=== PATIENT | female | born 2000 | race African-American/Black ===

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

== ENCOUNTER → 2018-07-11 | Outpatient (CLI) | payer OTHER ==
--- NOTE | 2018-07-11 14:53 | REP ---
Clinical: Pelvic pain. Ovarian cyst . Technique: Transabdominal pelvic ultrasound followed by transvaginal examination for better evaluation of the endometrium and adnexa with color Doppler evaluation of the ovaries. Findings: Bladder is unremarkable and measures 8.1 x 6.6 x 7.7 cm . Normal anteverted uterus measures 8.1 x 3.1 x 4.8 cm . The endometrial complex measures 5.6 mm thickness. No discrete uterine or endometrial abnormalities are appreciated. Bilateral ovaries are normal in appearance and vascularity without evidence for torsion. Right ovary measures 3.2 x 2.6 x 3.0 cm and includes 1.6 cm dominant follicle ; R I = 0.60 . Left ovary measures 4.7 x 1.8 x 3.1 cm ; R I = 0.64 . No pelvic fluid or adnexal mass lesion . Impression: 1. essentially normal pelvic ultrasound. Electronically Signed by Mike Chan MD 07/11/2018 02:45 P
== END ==
LOC: M RAD 13:45
PROVIDERS: ATTEND Advanced Practice Midwife
DX: Z86.018 Personal history of other benign neoplasm (principal)

== ENCOUNTER 2018-08-08 14:24 | Emergency (ER) | payer OTHER ==
[~2018-08-08] VITALS: Ht 157.5 cm; Wt 54.1 kg
[2018-08-08 14:25] VITALS: BP 129/69
[2018-08-08] MEDS ORDERED: REGL5TAB2 PO (15:20)
== END 2018-08-08 15:25 | disposition home or self-care (01) ==
LOC: M ED 14:24
DX: Z32.01 Encounter for pregnancy test, result positive (principal); F17.200 Nicotine dependence, unspecified, uncomplicated

== ENCOUNTER → 2018-08-15 | Outpatient (REF) | payer OTHER ==
[~2018-08-15] MED LIST changes: +REGL5TAB2 PO
[2018-08-15 14:16] LABS: HEMATOCRIT 35.4 % (36.0-47.0); HEMOGLOBIN 12.1 g/dl (12.0-15.5); MEAN CORPUSCULAR HEMOGLOBIN 30.6 pg (27.0-33.0); MEAN CORPUSCULAR HGB CONC 34.2 g/dl (32.0-36.5); MEAN CORPUSCULAR VOLUME 89.4 fl (80.0-96.0); PLATELET COUNT, AUTOMATED 235 10^3/uL (150-450); RED BLOOD COUNT 3.96 10^6/uL (4.00-5.40); WHITE BLOOD COUNT 8.5 10^3/uL (4.0-10.0)
[2018-08-15 15:02] LABS: HCG, SERUM QUANTITATIVE 58774 MIU/ML
[2018-08-16 09:58] LABS: RUBELLA IgG QUALITATIVE IMMUNE (IMMUNE)
[2018-08-16 10:27] LABS: HIV 1&2 SCREEN CENTAUR NEGATIVE (NEGATIVE)
== END ==
LOC: M LAB REF 12:45
PROVIDERS: ATTEND Nurse Practitioner Women's Health
DX: O36.80X0 Pregnancy with inconclusive fetal viability, not applicable or unspecified (principal); Z3A.00 Weeks of gestation of pregnancy not specified

== ENCOUNTER → 2018-08-31 | Outpatient (REF) | payer OTHER | LOC: M LAB REF 14:21 | PROVIDERS: ATTEND Nurse Practitioner Women's Health | DX: O36.80X0 Pregnancy with inconclusive fetal viability, not applicable or unspecified (principal) ==

== ENCOUNTER 2018-09-16 23:02 | Emergency (ER) | payer OTHER ==
[~2018-09-16] VITALS: Ht 157.5 cm; Wt 55.0 kg
[2018-09-16] MEDS ORDERED: MORPHINE 2 MG/ML 1ML SYRINGE (J2270) IV ONE (23:45)
[2018-09-16] MEDS ORDERED: NS 1,000 ML IV ONE (23:45)
[2018-09-17 00:36] LABS: BASO % 0.5 % (0.0-1.0); EOS # 0.1 10^3/uL (0.0-0.50); HEMATOCRIT 32.8 % (36.0-47.0); HEMOGLOBIN 11.7 g/dl (12.0-15.5); LYMPH # 1.4 10^3/uL (1.5-6.5); LYMPH % 17.4 % (24.0-44.0); MEAN CORPUSCULAR HEMOGLOBIN 31.5 pg (27.0-33.0); MEAN CORPUSCULAR HGB CONC 35.7 g/dl (32.0-36.5); MEAN CORPUSCULAR VOLUME 88.2 fl (80.0-96.0); MONO # 0.5 10^3/uL (0.0-0.8); MONO % 5.8 % (0.0-5.0); NEUTROPHILS # 6.1 10^3/uL (1.8-7.7); NEUTROPHILS % 75.1 % (36.0-66.0); PLATELET COUNT, AUTOMATED 190 10^3/uL (150-450); RED BLOOD COUNT 3.72 10^6/uL (4.00-5.40); WHITE BLOOD COUNT 8.1 10^3/uL (4.0-10.0)
[2018-09-17] MEDS ORDERED: MELA3TAB24 PO (03:49)
[2018-09-17] MEDS ORDERED: ZOLO100T PO (03:49)
--- NOTE | 2018-09-17 03:51 | REPVR ---
EXAM: US Pelvis Complete, Transabdominal EXAM DATE/TIME: 09/17/2018 1:31 AM CLINICAL HISTORY: 18 years old, female; Pelvic pain; Prior surgery; Surgery date: 3-7 days post-operative; Additional info: Post op pain/eval rpoc TECHNIQUE: Imaging protocol: Real-time transabdominal pelvic ultrasound with image documentation. Complete exam. COMPARISON: US PELVIC NON-OB COMPLETE 07/11/2018 1:59 PM FINDINGS: Uterus/cervix: The uterus measures 10.6 cm in its cephalocaudad dimension and 4.9 x 7.4 cm in its AP and lateral dimensions. The endometrium is irregular and heterogeneous and measures 2.5 cm. There is increased vascularity of the endometrium. Right adnexa: The right ovary measures 2.1 x 2.3 x 2.0 cm. Left adnexa: The left ovary measures 2.3 x 3.1 x 2.5 cm. Free fluid: None. Bladder: The urinary bladder is normal and measures 9.0 x 6.9 x 4.9 cm. IMPRESSION: 1. Thick heterogeneous endometrium with increased vascularity measuring 2.5 cm consistent with retained products of conception. 2. Otherwise negative pelvic sonogram. Electronically signed by: Mickey Ladd On 09/17/2018 03:51:36 AM
[2018-09-17] MEDS ORDERED: AMPICILLIN SOD/SULBACTAM SOD 3 GM in D5W MINI-BAG PLUS 100 ML IV ONE (04:15)
[2018-09-17 05:00] VITALS: BP 110/65
[2018-09-17] MEDS ORDERED: AUGM500T34 PO (05:13)
--- NOTE | 2018-09-19 12:41 | ED PDOC ---
Post-Departure Follow-Up dr desai faxed formal report of pelvic us for fu Ayaka Santamaria MD Sep 19, 2018 12:41
== END 2018-09-17 05:21 | disposition home or self-care (01) ==
LOC: M ED 23:02
DX: O73.1 Retained portions of placenta and membranes, without hemorrhage (principal); N92.0 Excessive and frequent menstruation with regular cycle; R11.0 Nausea; F17.200 Nicotine dependence, unspecified, uncomplicated; Z91.040 Latex allergy status
CPT/HCPCS: 76830; 76856; 85025; 96361; 96365; 96375; 99284; J2270

== ENCOUNTER 2018-09-25 04:41 | Emergency (ER) | payer OTHER ==
[~2018-09-25] VITALS: Ht 157.5 cm; Wt 55.5 kg
[~2018-09-25 04:41] MED LIST changes: +AUGM500T34 PO; +MELA3TAB24 PO; +ZOLO100T PO
[2018-09-25 05:44] LABS: BASO % 0.3 % (0.0-1.0); EOS # 0.1 10^3/uL (0.0-0.50); EOS % 0.8 % (0.0-3.0); HEMATOCRIT 32.1 % (36.0-47.0); HEMOGLOBIN 11.4 g/dl (12.0-15.5); LYMPH # 1.7 10^3/uL (1.5-6.5); LYMPH % 13.3 % (24.0-44.0); MEAN CORPUSCULAR HEMOGLOBIN 31.1 pg (27.0-33.0); MEAN CORPUSCULAR HGB CONC 35.5 g/dl (32.0-36.5); MEAN CORPUSCULAR VOLUME 87.7 fl (80.0-96.0); MONO # 0.4 10^3/uL (0.0-0.8); MONO % 3.5 % (0.0-5.0); NEUTROPHILS # 10.3 10^3/uL (1.8-7.7); NEUTROPHILS % 81.6 % (36.0-66.0); PLATELET COUNT, AUTOMATED 307 10^3/uL (150-450); RED BLOOD COUNT 3.66 10^6/uL (4.00-5.40); WHITE BLOOD COUNT 12.6 10^3/uL (4.0-10.0)
[2018-09-25] MEDS ORDERED: NS 1,000 ML IV ONE (05:45)
--- NOTE | 2018-09-25 08:52 | REPVR ---
EXAM: US Duplex Artery or Vein of the Reproductive Organs, Limited Ovaries EXAM DATE/TIME: 09/25/2018 7:43 AM CLINICAL HISTORY: 18 years old, female; Prior surgery; Surgery date: 3-7 days post-operative; Surgery type: D&C; Additional info: Bleeding/pelvic pain S/P D&C on 09/20/2018. TECHNIQUE: Imaging protocol: Real-time duplex ultrasound scan of the arterial or venous flow with meraz scale, color Doppler flow and spectral waveform analysis. Limited duplex exam focused on the ovaries. Duplex exam was performed to evaluate for ovarian torsion or mass. COMPARISON: US PELVIS ICT [employer] 09/17/2018 1:13 AM FINDINGS: Right adnexa: Normal duplex ultrasound of the right ovary. No torsion. Left adnexa: Normal duplex ultrasound of the left ovary. No torsion. IMPRESSION: Normal duplex of the ovaries. No evidence for ovarian torsion. EXAM: US Pelvis Complete, Transabdominal and US Pelvis, Transvaginal EXAM DATE/TIME: 09/25/2018 7:43 AM CLINICAL HISTORY: 18 years old, female; Prior surgery; Surgery date: 3-7 days post-operative; Surgery type: D&C; Additional info: Bleeding/pelvic pain S/P D&C on 09/20/2018. TECHNIQUE: Imaging protocol: Real-time transabdominal and transvaginal pelvic ultrasound (complete) with image documentation. Transvaginal imaging was used for better evaluation of the endometrium and adnexa. COMPARISON: US PELVIS ICT [employer] 09/17/2018 1:13 AM FINDINGS: Uterus/cervix: The anteverted uterus measures 9.1 cm x 5.2 cm x 6.5 cm. No uterine fibroid is identified. The endometrium measures 9 mm in thickness. There is a small amount of heterogeneous fluid in the endometrial canal, which is compatible with hemorrhage. No vascular mass is noted in the endometrial canal to suggest retained products of conception. There is a 2.5 cm x 2.8 cm heterogeneous avascular fluid collection in the cervix, which is also compatible with hemorrhage. Right adnexa: The right ovary is normal in appearance. No right ovarian cyst or right adnexal mass is noted. Blood flow is demonstrated to the right ovary. The right ovary measures 2.7 cm x 1.5 cm x 1.9 cm. Left adnexa: The left ovary is normal in appearance. No left ovarian cyst or left adnexal mass is noted. Blood flow is demonstrated to the left ovary. The left ovary measures 2.8 cm x 2.8 cm x 2.1 cm. Free fluid: None. Bladder: Normal. IMPRESSION: 1. Hemorrhage in the endometrial canal and cervix, but no evidence for retained products of conception. 2. Normal ovaries. Electronically signed by: Dagoberto Stoner On 09/25/2018 08:51:55 AM
[2018-09-25 09:22] LABS: BLOOD UREA NITROGEN 4 MG/DL (7-18); CARBON DIOXIDE LEVEL 24 MEQ/L (21-32); CHLORIDE LEVEL 113 MEQ/L (98-107); CREATININE FOR GFR 0.53 MG/DL (0.55-1.30); GLUCOSE, FASTING 97 MG/DL (70-100); POTASSIUM SERUM 3.6 MEQ/L (3.5-5.1); SODIUM LEVEL 143 MEQ/L (136-145)
[2018-09-25 10:24] VITALS: BP 121/79
== END 2018-09-25 10:26 | disposition home or self-care (01) ==
LOC: M ED 04:41
DX: N92.0 Excessive and frequent menstruation with regular cycle (principal); J45.909 Unspecified asthma, uncomplicated; F17.210 Nicotine dependence, cigarettes, uncomplicated

== ENCOUNTER 2019-04-13 12:29 | Emergency (ER) | payer MEDICAID, OTHER ==
[~2019-04-13] VITALS: Ht 157.5 cm; Wt 57.1 kg
[2019-04-13 12:30] VITALS: BP 142/79
[2019-04-13 13:35] LABS: BASO # 0.1 10^3/uL (0.0-0.2); BASO % 0.7 % (0.0-1.0); EOS # 0.2 10^3/uL (0.0-0.5); EOS % 2.6 % (0.0-3.0); HEMATOCRIT 35.1 % (36.0-47.0); HEMOGLOBIN 12.2 g/dl (12.0-15.5); LYMPH # 2.8 10^3/uL (1.5-5.0); LYMPH % 31.5 % (24.0-44.0); MEAN CORPUSCULAR HGB CONC 34.8 g/dl (32.0-36.5); MEAN CORPUSCULAR VOLUME 89.1 fl (80.0-96.0); MONO # 0.4 10^3/uL (0.0-0.8); MONO % 4.2 % (0.0-5.0); NEUTROPHILS # 5.4 10^3/uL (1.5-8.5); NEUTROPHILS % 60.8 % (36.0-66.0); PLATELET COUNT, AUTOMATED 246 10^3/uL (150-450); RED BLOOD COUNT 3.94 10^6/uL (4.00-5.40); WHITE BLOOD COUNT 8.8 10^3/uL (4.0-10.0)
[2019-04-13 14:24] LABS: ALBUMIN 3.8 GM/DL (3.2-5.2); ALT/SGPT 13 U/L (12-78); BILIRUBIN,DIRECT 0.1 MG/DL (0.0-0.2); BILIRUBIN,TOTAL 0.4 MG/DL (0.2-1.0); BLOOD UREA NITROGEN 5 MG/DL (7-18); CALCIUM LEVEL 8.7 MG/DL (8.5-10.1); CARBON DIOXIDE LEVEL 21 MEQ/L (21-32); CHLORIDE LEVEL 109 MEQ/L (98-107); CREATININE FOR GFR 0.52 MG/DL (0.55-1.30); GLUCOSE, FASTING 83 MG/DL (70-100); HCG, SERUM QUANTITATIVE 10060 MIU/ML; LIPASE 106 U/L (73-393); POTASSIUM SERUM 4.2 MEQ/L (3.5-5.1); SODIUM LEVEL 139 MEQ/L (136-145); TOTAL PROTEIN 7.1 GM/DL (6.4-8.2)
--- NOTE | 2019-04-13 16:40 | REP ---
Clinical: Cramping. Dating and viability. Technique: Transabdominal and transvaginal first trimester obstetrical ultrasound with color Doppler evaluation. Findings: Anteverted uterus measures 8.6 x 4.3 x 4.6 cm. A gestational sac with yolk sac is identified. Mean sac diameter of 11 mm corresponds to 5 weeks 6 days gestational age. No pole identified. Maternal ovaries are normal in appearance. Right ovary measures 2.4 x 1.0 x 1.5 cm. Left ovary measures 3.9 x 2.0 x 2.4 cm and includes 2.0 cm complex cyst likely corpus luteum. Small amount of left pelvic fluid. Impression: 1. Gestational sac with yolk sac, but no pole. Differential diagnosis includes early and blighted ovum. Correlation with serial HCG levels and follow-up examination recommended. Less likely, ectopic cannot be excluded. Electronically Signed by Mike Chan MD 04/13/2019 04:32 P
== END 2019-04-13 17:08 | disposition home or self-care (01) ==
LOC: M ED 12:29
DX: O26.891 Other specified pregnancy related conditions, first trimester (principal); Z87.59 Personal history of other complications of pregnancy, childbirth and the puerperium; Z3A.01 Less than 8 weeks gestation of pregnancy; Z91.040 Latex allergy status

== ENCOUNTER → 2019-05-08 | Outpatient (CLI) | payer MEDICAID ==
[2019-05-08 18:29] LABS: BASO % 0.5 % (0.0-1.0); EOS # 0.1 10^3/uL (0.0-0.5); EOS % 1.4 % (0.0-3.0); HEMATOCRIT 35.7 % (36.0-47.0); HEMOGLOBIN 12.5 g/dl (12.0-15.5); LYMPH # 2.4 10^3/uL (1.5-5.0); MEAN CORPUSCULAR HEMOGLOBIN 31.4 pg (27.0-33.0); MEAN CORPUSCULAR VOLUME 89.7 fl (80.0-96.0); MONO # 0.4 10^3/uL (0.0-0.8); NEUTROPHILS # 5.6 10^3/uL (1.5-8.5); NEUTROPHILS % 64.8 % (36.0-66.0); PLATELET COUNT, AUTOMATED 266 10^3/uL (150-450); RED BLOOD COUNT 3.98 10^6/uL (4.00-5.40); WHITE BLOOD COUNT 8.7 10^3/uL (4.0-10.0)
[2019-05-08 20:37] LABS: CHLAMYDIA DNA AMPLIFICATION NEGATIVE (NEGATIVE); GC DNA AMPLIFICATION NEGATIVE (NEGATIVE)
[2019-05-09 10:35] LABS: HEPATITIS C VIRUS ABY INDEX 0.2 INDEX (<0.8); HIV 1&2 SCREEN CENTAUR NEGATIVE (NEGATIVE); RUBELLA IgG QUALITATIVE IMMUNE (IMMUNE)
== END ==
LOC: M PLALAB 14:30
PROVIDERS: ATTEND Advanced Practice Midwife
DX: Z33.1 Pregnant state, incidental (principal)

== ENCOUNTER → 2019-05-22 | Outpatient (CLI) | payer MEDICAID | LOC: M PLALAB 12:14 | PROVIDERS: ATTEND Advanced Practice Midwife | DX: Z34.81 Encounter for supervision of other normal pregnancy, first trimester (principal) ==

== ENCOUNTER → 2019-07-04 | Outpatient (REF) | payer MEDICAID, OTHER | LOC: M SFHCWAGY 16:53 | PROVIDERS: ATTEND Advanced Practice Midwife | DX: R35.0 Frequency of micturition (principal) ==

== ENCOUNTER → 2019-07-20 | Outpatient (CLI) | payer MEDICAID, OTHER ==
--- NOTE | 2019-07-20 17:47 | REP ---
HISTORY: anatomy. COMPARISON: None. Multiple ultrasonographic images of the gravid uterus show a single living intrauterine gestation in the breech presentation. Doppler interrogation of the heart shows a heart rate of 158 beats per minute. The placenta is anterior and not low lying. The cervix measures 3.7 cm in length and is closed. The subjective amniotic fluid volume is within normal limits. Evaluation of the maternal adnexal spaces showed no abnormalities. BPD 4.3 cm = 19 weeks 0 days HC 16.3 cm = 19 weeks 0 days AC 14.2 cm = 19 weeks 4 days FL 3.0 cm = 19 weeks 2 days The estimated weight is 289 grams, which is at the 38th percentile for a 19 week 4 day gestational age. The anatomical structures seen as unremarkable are as follows: Thalami, cavum septum pellucidum, cerebellum, cisterna magna, cerebral ventricles, spine, kidneys, urinary bladder, upper and lower extremities, stomach, four chamber heart, right and left ventricular outflow tracts and facial features. Three vessel umbilical cord was not documented and the cord insertion site was suboptimally visualized. IMPRESSION: Single living intrauterine gestation as described above with an estimated gestational age of 19 weeks 0 days via composite criteria and an estimated date of delivery of 12/14/2019 by today's exam. No anomalies were detected, however, recommend a followup examination to better visualize the cord insertion site and document a three vessel umbilical cord.
== END ==
LOC: M WHC 14:55
PROVIDERS: ATTEND Nurse Practitioner Women's Health
DX: Z34.82 Encounter for supervision of other normal pregnancy, second trimester (principal); Z3A.17 17 weeks gestation of pregnancy

== ENCOUNTER → 2019-08-09 | Outpatient (CLI) | payer OTHER ==
--- NOTE | 2019-08-10 01:36 | REP ---
Clinical: Anatomical evaluation. Comparison: 07/20/2019 . Findings: Examination demonstrates a single live intrauterine in transverse (head to maternal left) presentation. motion is identified by technologist. Placenta is noted anterior and grade zero without evidence for placenta previa or abruption. Amniotic fluid volume is normal. Cervix measures 3.4 cm in length and appears closed. No evidence for nuchal cord. Gestational age by LMP 22 weeks 3 days with SIVAN 12/10/2019 . Gestational age by current measurements 21 weeks 5 days with SIVAN 12/15/2019 . FHR equals 167 beats per minute. Estimated weight 482 grams ( 36th percentile). Anatomical assessment demonstrates normal cord insertion/three-vessel cord. Impression: Single live intrauterine in transverse lie demonstrating appropriate interval growth. No gross abnormalities are identified.
== END ==
LOC: M WHC 13:27
PROVIDERS: ATTEND Advanced Practice Midwife
DX: Z36.2 Encounter for other antenatal screening follow-up (principal); Z3A.22 22 weeks gestation of pregnancy; O32.2XX0 Maternal care for transverse and oblique lie, not applicable or unspecified

== ENCOUNTER → 2019-09-20 | Outpatient (REF) | payer OTHER ==
[2019-09-20 17:10] LABS: HEMATOCRIT 29.3 % (36.0-47.0); HEMOGLOBIN 9.8 g/dl (12.0-15.5); MEAN CORPUSCULAR HEMOGLOBIN 30.6 pg (27.0-33.0); MEAN CORPUSCULAR HGB CONC 33.4 g/dl (32.0-36.5); MEAN CORPUSCULAR VOLUME 91.6 fl (80.0-96.0); PLATELET COUNT, AUTOMATED 275 10^3/uL (150-450); WHITE BLOOD COUNT 11.7 10^3/uL (4.0-10.0)
== END ==
LOC: M PLALAB 14:17
PROVIDERS: ATTEND Advanced Practice Midwife
DX: Z34.82 Encounter for supervision of other normal pregnancy, second trimester (principal)

== ENCOUNTER → 2019-11-20 | Outpatient (REF) | payer OTHER ==
[~2019-11-20] MED LIST changes: +FERR325T3 PO; +PRENTAB9 PO
== END ==
LOC: M SFHCWAGY 09:55
PROVIDERS: ATTEND Advanced Practice Midwife
DX: Z36.85 Encounter for antenatal screening for Streptococcus B (principal)

== ENCOUNTER 2019-11-28 23:51 | Inpatient (IN) | payer OTHER ==
[~2019-11-28] VITALS: Ht 157.5 cm; Wt 69.4 kg
[~2019-11-28 23:51] MED LIST changes: -FERR325T3 PO; -PRENTAB9 PO
[2019-11-29] MEDS ORDERED: FERR325T3 PO (00:38)
[2019-11-29 00:43] VITALS: BP 135/80
[2019-11-29] MEDS ORDERED: PRENTAB9 PO (01:34)
[2019-11-29 01:37] LABS: HEMOGLOBIN 11.9 g/dl (12.0-15.5); MEAN CORPUSCULAR HEMOGLOBIN 30.6 pg (27.0-33.0); PLATELET COUNT, AUTOMATED 226 10^3/uL (150-450); RED BLOOD COUNT 3.89 10^6/uL (4.00-5.40); WHITE BLOOD COUNT 10.1 10^3/uL (4.0-10.0)
[2019-11-29] MEDS: miSOPROStol 50 MCG 1/2 TAB (S0191) PO SCH ×3 (01:39→09:30)
[2019-11-29 01:46] LABS: ALT/SGPT 14 U/L (12-78); BILIRUBIN,TOTAL 0.4 MG/DL (0.2-1.0); CREATININE FOR GFR 0.46 MG/DL (0.55-1.30); GLOMERULAR FILTRATION RATE > 60.0 (>60); LDH LACTATE DEHYDROGENASE 207 U/L (84-246); URIC ACID 3.9 MG/DL (2.6-6.0)
[2019-11-29 02:19] LABS: TOTAL PROTEIN,RANDOM URINE 35.8 MG/DL (0.0-12.0)
[2019-11-29] MEDS ORDERED: LR 1,000 ML IV SCH (10:13)
[2019-11-29] MEDS ORDERED: OXYTOCIN DRIP 30 UNITS in IV 1 EA IV SCH ×2 (10:15→18:39)
[2019-11-29] MEDS ORDERED: OXYTOCIN 30 UNITS IN 0.9% NaCl 500ML IV BAG (J2590) As Ordered ONE (10:16)
--- NOTE | 2019-11-29 10:17 | IPNPDOC ---
Obstetrical Progress Note Date of Service Nov 29, 2019 Objective Vital Signs Date Time Temp Pulse Resp B/P (MAP) Pulse Ox O2 Delivery O2 Flow Rate FiO2 11/29/19 07:20 97.6 11/29/19 00:43 87 18 135/80 (98) Room Air Assessment Heart Rate (FHR): 130 Variability: Moderate Accelerations: Positive Decelerations: None Heart Rate Tracing: Category I Tocometer Contractions: Yes Frequency: regular Sterile Vaginal Examination Dilation: 3 cm (3-4 cm) Effacement (%): 80% Station: -1 Cervical Consistency: Soft Cervical Position: Anterior Postion/Presentation: Cephalic presentation Assessment and Plan Age: 19 Status: Reassuring Group B Streptococcus: Negative Anticipate: Vaginal Delivery Additional Comments IV Pitocin to be started per order. DAPHNE CUEVAS CNM Nov 29, 2019 10:17
[2019-11-29] MEDS ORDERED: FENTANYL 2MCG/ML ROPIVACAINE 0.2% IN 0.9% NACL 100ML IVBAG As Ordered ONE (10:41)
[2019-11-29] MEDS ORDERED: LR 500 ML IV ONE (10:45)
[2019-11-29] MEDS ORDERED: LACTATED RINGER'S 1000 ML IV PRN (11:30)
[2019-11-29] MEDS ORDERED: REFRIGERATOR IV KEYS XX PRN (11:30)
[2019-11-29] MEDS ORDERED: EPIDURAL COMMENT XX SCH (11:30)
[2019-11-29] MEDS ORDERED: ONDANSETRON 4MG/2ML VIAL IV PRN (11:30)
[2019-11-29] MEDS ORDERED: ePHEDrine SULFATE 25 MG/5 ML(5MG/ML) SYRINGE IV PRN (11:30)
[2019-11-29] MEDS ORDERED: FENTANYL/ROPIVACAINE/NACL BAG 100 ML EPIDURAL SCH (11:30)
[2019-11-29] MEDS ORDERED: diphenhydrAMINE 50MG/ML VIAL (J1200) IV PRN (11:30)
[2019-11-29] MEDS ORDERED: EPIDURAL/PCA KEYS XX PRN (11:30)
[2019-11-29] MEDS ORDERED: NALOXONE INJ 0.4MG/1ML VIAL (J2310 PER 1MG) IV PRN (11:30)
--- NOTE | 2019-11-29 15:40 | IPNPDOC ---
Obstetrical Progress Note Date of Service Nov 29, 2019 Subjective Patient is comfortable with her epidural. She denies any preeclamptic symptoms. Objective Vital Signs Date Time Temp Pulse Resp B/P (MAP) Pulse Ox O2 Delivery O2 Flow Rate FiO2 11/29/19 07:20 97.6 11/29/19 00:43 87 18 135/80 (98) Room Air 1504: BP: 110/59; pulse 95; respirations 18 Assessment Heart Rate (FHR): 120 Variability: Moderate Accelerations: Positive Decelerations: None Heart Rate Tracing: Category I Tocometer Contractions: Yes Frequency: regular, every 1-3 min. Sterile Vaginal Examination Dilation: 4 cm Effacement (%): 80% Station: -1, 0 Cervical Consistency: Soft Cervical Position: Anterior Postion/Presentation: Cephalic presentation Assessment and Plan Age: 19 : 2 Term: 0 Pre-term: 0 Abortions: 1 Livin EGA at Admission: 38.3 Status: Reassuring Group B Streptococcus: Negative Anticipate: Vaginal Delivery Additional Comments IV Pitocin is at 6 mu/min. AROM to a small amount of clear fluid. DAPHNE CUEVAS CNM Nov 29, 2019 15:40
--- NOTE | 2019-11-29 16:35 | IPNPDOC ---
Obstetrical Progress Note Date of Service Nov 29, 2019 Subjective Patient reports feeling rectal pressure. Objective BP: 136/83, pulse 88, SpO2 98% Assessment Heart Rate (FHR): 135 Variability: Moderate Accelerations: Positive Decelerations: Early Heart Rate Tracing: Category I Tocometer Contractions: Yes Frequency: regular, every 1-3 min. Sterile Vaginal Examination Dilation: 5 cm (5 to 6 cm) Effacement (%): 100% Station: +1 Assessment and Plan Age: 19 EGA at Admission: 38.3 Status: Reassuring Anticipate: Vaginal Delivery Additional Comments IV Pitocin is at 10 mu/min DAPHNE CUEVAS CNM Nov 29, 2019 16:35
[2019-11-29] MEDS ORDERED: miSOPROStol 200 MCG TAB (S0191) PR ONE (18:45)
[2019-11-29] MEDS ORDERED: RHOGAM 300 MCG (1500 IU) INJ (J2790) IM SCH (18:45)
[2019-11-29] MEDS ORDERED: IBUPROFEN 600MG TAB PO PRN (18:45)
[2019-11-29] MEDS ORDERED: ACETAMINOPHEN 500 MG TAB PO PRN (18:45)
[2019-11-29] MEDS ORDERED: MOM 30ML SUSPENSION UDC PO PRN (18:45)
[2019-11-29] MEDS ORDERED: ANUSOL HC CREAM 30GM TOP PRN (18:45)
[2019-11-29] MEDS ORDERED: IBUPROFEN 800 MG TAB PO PRN (18:45)
[2019-11-29] MEDS ORDERED: ACETAMINOPHEN TAB 650MG DOSE (2X325MG) PO PRN (18:45)
[2019-11-29] MEDS ORDERED: MEASLES,MUMPS,RUBELLA VACCINE INJ (MMR-II) (90707) SC SCH (18:45)
[2019-11-29] MEDS ORDERED: DIBUCAINE 1% OINTMENT 30GM TOP PRN (18:45)
--- NOTE | 2019-11-29 18:59 | DNPDOC ---
[facility] Delivery Note Delivery Note DATE OF DELIVERY: 11/29/19 at 1759 PREDELIVERY DIAGNOSIS: 38-3/7 weeks' gestation and labor. POST DELIVERY DIAGNOSIS: Delivered. PROCEDURE: Spontaneous vaginal delivery. ZOO VETERINARIAN: Daphne Nuñez CNM, ELA ANESTHESIA: epidural. ESTIMATED BLOOD LOSS: 500 mL. FINDINGS: 6 pounds 9 ounces; 2980 grams; male , Score 9/9, nuchal cord times 1 loose, GHTN, hemorrhage. DELIVERY SUMMARY: Patient is a 19-year-old female who is now a at 38.3 weeks gestation who presented to L&D for an induction of labor for GHTN. She received Cytotec and IV Pitocin for induction. The patient requested an epidural for pain management. She progressed to fully dilated at 1739 and pushed to a living male in the CAIN position with restitution to LOT. A nuchal cord was noted and reduced. The anterior shoulder delivered with ease and the corpus immediately followed. The baby was placed [id number] active and crying with stimulation. The cord was clamped x2 and cut by the FOB. The placenta delivered spontaneously and intact at 1803. Uterine hemostasis was achieved via rapid infusion of IV Pitocin and fundal massage. She did receive Cytotec 800 mcg rectally for extra vaginal bleeding. The vagina, cervix, and perineum were inspected and found to have a small first degree perineal laceration that was repaired with a 3.[address]-1 with a figure 8. Mom plans to formula feed and they are naming him Joeln. Both mom and baby are in stable condition. All counts of instruments and sponges are correct. DAPHNE NUÑEZ CNM Nov 29, 2019 18:59
[2019-11-29 19:10] VITALS: BP 125/91
[2019-11-29 19:25] VITALS: BP 124/82
[2019-11-29 20:00] VITALS: BP 133/86
[2019-11-30] MEDS: DOCUSATE SODIUM 100 MG CAP PO PRN ×2 (02:26→20:09)
[2019-11-30 06:00] VITALS: BP 110/77
[2019-11-30] MEDS: PRENATAL VITAMINS CHEWABLE TABLET PO SCH (08:34)
--- NOTE | 2019-11-30 09:49 | IPNPDOC ---
Text Note Date of Service The patient was seen on 11/30/19. NOTE PP #1 Feels well. Spirits good. Adequate pain management. Bottlefeeding. Voiding QS VSS, afebrile, normotensive Breasts soft Fundus firm, NT, down 1 FB Lochia rubra light without odor Perineum intact PP #1, doing well Routine care. Anticipate D/C in am VS,Fishbone, I+O VS, Fishbone, I+O Vital Signs Date Time Temp Pulse Resp B/P (MAP) Pulse Ox O2 Delivery O2 Flow Rate FiO2 11/30/19 06:00 96.5 89 18 110/77 (88) 11/29/19 00:43 Room Air I&O- Last 24 Hours up to 6 AM 11/30/19 06:00 Intake Total 2149.5 ml Output Total 1600 ml Balance 549.5 ml Selma Davis CNM Nov 30, 2019 09:49
[2019-11-30 10:00] VITALS: BP 119/75
[2019-11-30 14:00] VITALS: BP 132/63
[2019-11-30 18:18] VITALS: BP 138/92
[2019-11-30 22:00] VITALS: BP 122/80
[2019-12-01 06:00] VITALS: BP 120/76
[2019-12-01] MEDS: PRENATAL VITAMINS CHEWABLE TABLET PO SCH (08:59)
[2019-12-01 10:03] VITALS: BP 111/66
--- NOTE | 2020-01-14 14:13 | HPE ---
DATE OF ADMISSION: 11/29/2019 HISTORY OF PRESENT ILLNESS: The patient is a 19-year-old 2, para 0-0-1-0. She is 38 and 3/7 weeks gestation with an estimated date of confinement (EDC) of 12/10/2019. She presents to labor and delivery today for induction of labor due to elevated blood pressures in the third trimester. She denies headache, visual disturbances, epigastric pain, or right upper quadrant discomfort. She denies regular painful contractions, vaginal bleeding, and leakage of fluid. The fetus has been active. care was initiated at [facility] and [facility] in the first trimester. course complication by the recent diagnosis of gestational hypertension. OBSTETRIC HISTORY: Spontaneous miscarriage. OBSETRIC LABORATORY DATA: A positive. Antibody screen negative. Hepatitis C negative. Hepatitis B negative. HIV negative. Syphilis negative. Rubella immune. Gestational diabetic screening normal at 99 and GBS is negative. PAST MEDICAL HISTORY: Anemia. PAST SURGICAL HISTORY: Appendectomy. FAMILY HISTORY: Non-contributory. SOCIAL HISTORY: She is single. Father of the baby is present and at the bedside. She stopped smoking during her . She denies alcohol and drug use. No history of any sexually transmitted infections. She denies history of abuse. ALLERGIES: LATEX. CURRENT MEDICATIONS: Ferrous sulfate and vitamins. PHYSICAL EXAMINATION: VITAL SIGNS: Temperature 97.4, pulse 87, respirations 18, blood pressure 135/80. heart rate is 140 with moderate variability, positive accelerations, negative decelerations. There is no pattern of contractions. ABDOMEN: Gravid. Cephalic presentation. Estimated weight 7 pounds. PELVIC: On sterile vaginal exam 1 cm dilated, 50% effaced, -2 station, posterior soft with normal amount of show. ASSESSMENT: Intrauterine at 38 and 3/7 weeks, heart rate category 1, gestational hypertension. PLAN: Admit the patient to labor and delivery. Routine labs with the addition of preeclamptic profile and a spot urine. Saline lock at this time. Regular diet at this time. Out of bed. Plan to start misoprostol at 50 mcg p.o. every four hours for cervical ripening. Will likely start IV Pitocin for labor induction. The patient desired an epidural for her labor coping when she is in active labor. I did review the risks, benefits, and alternatives. All of her questions have been answered. She has been verbally consented for emergency surgery and blood products if they are necessary. I do anticipate cervical ripening, labor, and a vaginal delivery. MTDD
== END 2019-12-01 13:02 | disposition home or self-care (01) | DRG 560 ==
LOC: M LDI 23:51 → M OBS 11-29 20:00
PROVIDERS: ADMIT Advanced Practice Midwife; ATTEND Advanced Practice Midwife
PROC: 3E0P7GC Introduction of Other Therapeutic Substance into Female Reproductive, Via Natural or Artificial Opening (ICD-10-PCS; 2019-11-28)
PROC: 10E0XZZ Delivery of Products of Conception, External Approach (ICD-10-PCS; principal; 2019-11-29)
PROC: 10907ZC Drainage of Amniotic Fluid, Therapeutic from Products of Conception, Via Natural or Artificial Opening (ICD-10-PCS; 2019-11-29)
PROC: 0HQ9XZZ Repair Perineum Skin, External Approach (ICD-10-PCS; 2019-11-29)
DX: O13.4 Gestational [pregnancy-induced] hypertension without significant proteinuria, complicating childbirth (principal); O69.1XX0 Labor and delivery complicated by cord around neck, with compression, not applicable or unspecified; Z3A.38 38 weeks gestation of pregnancy; O70.0 First degree perineal laceration during delivery; Z37.0 Single live birth

== ENCOUNTER → 2020-02-12 | Outpatient (CLI) | payer OTHER ==
[~2020-02-12] MED LIST changes: +FERR325T3 PO; +PRENTAB9 PO
[2020-02-12 09:55] LABS: HEMATOCRIT 37.2 % (36.0-47.0); HEMOGLOBIN 12.2 g/dl (12.0-15.5); MEAN CORPUSCULAR HEMOGLOBIN 29.3 pg (27.0-33.0); MEAN CORPUSCULAR HGB CONC 32.8 g/dl (32.0-36.5); MEAN CORPUSCULAR VOLUME 89.4 fl (80.0-96.0); PLATELET COUNT, AUTOMATED 253 10^3/uL (150-450); RED BLOOD COUNT 4.16 10^6/uL (4.00-5.40); WHITE BLOOD COUNT 5.5 10^3/uL (4.0-10.0)
[2020-02-12 10:24] LABS: HEMOGLOBIN A1c 5.4 %
[2020-02-12 10:27] LABS: ERYTHROCYTE SEDIMENTATION RATE 13 mm/hr (0-20)
[2020-02-12 10:35] LABS: ALBUMIN 3.5 GM/DL (3.2-5.2); ALT/SGPT 16 U/L (12-78); BILIRUBIN,TOTAL 0.3 MG/DL (0.2-1.0); BLOOD UREA NITROGEN 5 MG/DL (7-18); CALCIUM LEVEL 8.9 MG/DL (8.5-10.1); CARBON DIOXIDE LEVEL 27 MEQ/L (21-32); CHLORIDE LEVEL 111 MEQ/L (98-107); CHOLESTEROL LEVEL 165 MG/DL (<200); CHOLESTEROL RISK RATIO 4.024 (<5); GLOMERULAR FILTRATION RATE > 60.0 (>60); GLUCOSE, FASTING 94 MG/DL (70-100); HDL CHOLESTEROL 41 MG/DL (>40); LDL CHOLESTEROL 109 MG/DL (<100); NON-HDL-C 124 MG/DL; POTASSIUM SERUM 3.8 MEQ/L (3.5-5.1); RHEUMATOID FACTOR QUANT < 10.0 IU/ML (<15.0); SODIUM LEVEL 142 MEQ/L (136-145); THYROID STIMULATING HORMONE 0.607 uIU/ML (0.358-3.740); TOTAL 25(OH) VITAMIN D 12.6 NG/ML (30.0-100.0); TRIGLYCERIDES LEVEL 76 MG/DL (<150)
== END ==
LOC: M LAB 09:15
PROVIDERS: ATTEND Family Medicine
DX: D64.9 Anemia, unspecified (principal); E03.9 Hypothyroidism, unspecified; R53.83 Other fatigue

== ENCOUNTER → 2020-05-02 | Outpatient (REF) | payer OTHER ==
[2020-05-02 15:51] LABS: CHLAMYDIA DNA AMPLIFICATION NEGATIVE (NEGATIVE); GC DNA AMPLIFICATION NEGATIVE (NEGATIVE)
== END ==
LOC: M SFHCWAGY 12:37
PROVIDERS: ATTEND Advanced Practice Midwife
DX: Z12.4 Encounter for screening for malignant neoplasm of cervix (principal); Z77.9 Other contact with and (suspected) exposures hazardous to health; Z01.419 Encounter for gynecological examination (general) (routine) without abnormal findings

== ENCOUNTER → 2021-02-18 | Outpatient (REF) | payer OTHER | LOC: M SFHCWAGY 10:00 | PROVIDERS: ATTEND Advanced Practice Midwife | DX: R10.2 Pelvic and perineal pain (principal) ==

== ENCOUNTER → 2021-03-23 | Outpatient (CLI) | payer OTHER | LOC: M WHC 12:03 | PROVIDERS: ATTEND Advanced Practice Midwife | DX: R10.2 Pelvic and perineal pain (principal); N94.12 Deep dyspareunia; N85.4 Malposition of uterus; N83.11 Corpus luteum cyst of right ovary ==

== ENCOUNTER → 2021-05-11 | Outpatient (CLI) | payer OTHER ==
[2021-05-11 15:14] LABS: BASO % 0.5 % (0.0-1.0); EOS # 0.2 10^3/uL (0.0-0.5); EOS % 2.7 % (0.0-3.0); HEMATOCRIT 37.3 % (36.0-47.0); HEMOGLOBIN 12.8 g/dl (12.0-15.5); LYMPH # 2.4 10^3/uL (1.5-5.0); LYMPH % 28.1 % (24.0-44.0); MEAN CORPUSCULAR HEMOGLOBIN 30.3 pg (27.0-33.0); MEAN CORPUSCULAR HGB CONC 34.3 g/dl (32.0-36.5); MEAN CORPUSCULAR VOLUME 88.4 fl (80.0-96.0); MONO # 0.4 10^3/uL (0.0-0.8); MONO % 4.1 % (2.0-8.0); NEUTROPHILS # 5.5 10^3/uL (1.5-8.5); NEUTROPHILS % 64.3 % (36.0-66.0); PLATELET COUNT, AUTOMATED 268 10^3/uL (150-450); RED BLOOD COUNT 4.22 10^6/uL (4.00-5.40); WHITE BLOOD COUNT 8.6 10^3/uL (4.0-10.0)
[2021-05-11 15:44] LABS: TOTAL PROTEIN,RANDOM URINE 19.7 MG/DL (0.0-12.0)
[2021-05-11 15:45] LABS: ALBUMIN 3.5 GM/DL (3.2-5.2); ALT/SGPT 14 U/L (12-78); BILIRUBIN,TOTAL 0.3 MG/DL (0.2-1.0); BLOOD UREA NITROGEN 6 MG/DL (7-18); CALCIUM LEVEL 9.1 MG/DL (8.5-10.1); CARBON DIOXIDE LEVEL 24 MEQ/L (21-32); CHLORIDE LEVEL 108 MEQ/L (98-107); CREATININE FOR GFR 0.47 MG/DL (0.55-1.30); GLOMERULAR FILTRATION RATE > 60.0 (>60); GLUCOSE, FASTING 94 MG/DL (70-100); SODIUM LEVEL 139 MEQ/L (136-145); TOTAL PROTEIN 6.9 GM/DL (6.4-8.2)
[2021-05-11 16:35] LABS: HEPATITIS C VIRUS ABY INDEX < 0.0 INDEX (<0.8); HIV 1&2 SCREEN CENTAUR NEGATIVE (NEGATIVE)
[2021-05-11 17:48] LABS: GC DNA AMPLIFICATION NEGATIVE (NEGATIVE)
== END ==
LOC: M PLALAB 12:40
PROVIDERS: ATTEND Obstetrics & Gynecology
DX: Z34.81 Encounter for supervision of other normal pregnancy, first trimester (principal); Z36.89 Encounter for other specified antenatal screening

== ENCOUNTER → 2021-07-02 | Outpatient (CLI) | payer OTHER | LOC: M WHC 12:17 | PROVIDERS: ATTEND Obstetrics & Gynecology | DX: Z34.92 Encounter for supervision of normal pregnancy, unspecified, second trimester (principal); Z36.89 Encounter for other specified antenatal screening; Z3A.19 19 weeks gestation of pregnancy ==

== ENCOUNTER → 2021-08-17 | Outpatient (CLI) | payer OTHER ==
[2021-08-17 14:07] LABS: HEMATOCRIT 34.2 % (36.0-47.0); HEMOGLOBIN 11.3 g/dl (12.0-15.5); MEAN CORPUSCULAR HEMOGLOBIN 31.1 pg (27.0-33.0); MEAN CORPUSCULAR VOLUME 94.2 fl (80.0-96.0); PLATELET COUNT, AUTOMATED 309 10^3/uL (150-450); RED BLOOD COUNT 3.63 10^6/uL (4.00-5.40); WHITE BLOOD COUNT 12.1 10^3/uL (4.0-10.0)
== END ==
LOC: M PLALAB 09:01
PROVIDERS: ATTEND Advanced Practice Midwife
DX: Z34.92 Encounter for supervision of normal pregnancy, unspecified, second trimester (principal); Z36.89 Encounter for other specified antenatal screening

== ENCOUNTER 2021-10-12 22:24 | Outpatient (CLI) | payer OTHER ==
[~2021-10-12] VITALS: Ht 157.5 cm; Wt 68.4 kg
[2021-10-12 22:42] VITALS: BP 130/80
[2021-10-12] MEDS ORDERED: ECOT81TA5 PO (22:44)
[2021-10-12] MEDS ORDERED: HOME MED LIST COMPLETE! XX SCH (22:45)
[2021-10-12 23:07] LABS: APPEARANCE, URINE CLOUDY (CLEAR); BACTERIA, URINE AUTO NEGATIVE (NEGATIVE); BILIRUBIN, URINE AUTO NEGATIVE (NEGATIVE); BLOOD, URINE BLOOD NEGATIVE (NEGATIVE); COLOR, URINE YELLOW (YELLOW); GLUCOSE, URINE (UA) AUTO NEGATIVE (NEGATIVE); KETONE, URINE AUTO TRACE mg/dL (NEGATIVE); LEUKOCYTE ESTERASE, URINE AUTO 3+ (NEGATIVE); MUCUS, URINE SMALL (NEGATIVE); NITRITE, URINE AUTO NEGATIVE (NEGATIVE); PROTEIN, URINE AUTO 1+ mg/dL (NEGATIVE); RBC, URINE AUTO 4 /HPF (0-3); SQUAMOUS EPITHELIAL CELL UR AU 24 /HPF (0-6); UROBILINOGEN, URINE AUTO 0.2 mg/dL (0.0-2.0); WBC, URINE AUTO 11 /HPF (0-3)
[2021-10-12 23:10] VITALS: BP 126/82
== END 2021-10-12 23:30 | disposition home or self-care (01) ==
LOC: M LDO 22:24
PROVIDERS: ATTEND Advanced Practice Midwife
DX: O26.893 Other specified pregnancy related conditions, third trimester (principal); N89.8 Other specified noninflammatory disorders of vagina; Z3A.34 34 weeks gestation of pregnancy

== ENCOUNTER → 2021-10-21 | Outpatient (REF) | payer OTHER ==
[~2021-10-21] MED LIST changes: +ECOT81TA5 PO
== END ==
LOC: M SFHCWAGY 12:50
PROVIDERS: ATTEND Obstetrics & Gynecology
DX: Z36.85 Encounter for antenatal screening for Streptococcus B (principal)

== ENCOUNTER 2021-11-03 11:17 | Outpatient (CLI) | payer OTHER ==
[~2021-11-03] VITALS: Ht 157.5 cm; Wt 67.0 kg
[2021-11-03 11:38] VITALS: BP 131/88
[2021-11-03] MEDS ORDERED: HOME MED LIST COMPLETE! XX SCH (11:45)
[2021-11-03] MEDS ORDERED: ACETAMINOPHEN 500 MG TAB PO ONE (11:50)
[2021-11-03 12:34] LABS: APPEARANCE, URINE HAZY (CLEAR); BACTERIA, URINE AUTO 1+ (NEGATIVE); BILIRUBIN, URINE AUTO NEGATIVE (NEGATIVE); BLOOD, URINE BLOOD NEGATIVE (NEGATIVE); COLOR, URINE YELLOW (YELLOW); GLUCOSE, URINE (UA) AUTO NEGATIVE (NEGATIVE); KETONE, URINE AUTO NEGATIVE (NEGATIVE); LEUKOCYTE ESTERASE, URINE AUTO 3+ (NEGATIVE); MUCUS, URINE SMALL (NEGATIVE); NITRITE, URINE AUTO NEGATIVE (NEGATIVE); PROTEIN, URINE AUTO NEGATIVE (NEGATIVE); RBC, URINE AUTO 2 /HPF (0-3); SPECIFIC GRAVITY URINE AUTO 1.011 (1.002-1.035); SQUAMOUS EPITHELIAL CELL UR AU 9 /HPF (0-6); UROBILINOGEN, URINE AUTO 0.2 mg/dL (0.0-2.0); WBC, URINE AUTO 27 /HPF (0-3)
[2021-11-03 13:41] VITALS: BP 126/78
[2021-11-03] MEDS ORDERED: CYCLOBENZAPRINE 5MG TABLET PO ONE (15:00)
== END 2021-11-03 14:30 | disposition home or self-care (01) ==
LOC: M LDO 11:17
PROVIDERS: ATTEND Obstetrics & Gynecology
DX: O26.893 Other specified pregnancy related conditions, third trimester (principal); M54.50 Low back pain, unspecified; Z3A.37 37 weeks gestation of pregnancy

== ENCOUNTER 2021-11-11 13:29 | Inpatient (IN) | payer OTHER ==
[~2021-11-11] VITALS: Ht 157.5 cm; Wt 67.1 kg
[2021-11-11] VITALS (15 sets, daily range): BP systolic 112–142; BP diastolic 67–92
[2021-11-11] MEDS ORDERED: ACET-897 PO (13:47)
[2021-11-11] MEDS ORDERED: FIORICET TAB PO ONE (15:25)
[2021-11-11 15:51] LABS: CREATININE,RANDOM URINE 83.7 MG/DL; TOTAL PROTEIN,RANDOM URINE 22.1 MG/DL (0.0-12.0)
[2021-11-11 16:29] LABS: HEMATOCRIT 30.7 % (36.0-47.0); HEMOGLOBIN 9.8 g/dl (12.0-15.5); MEAN CORPUSCULAR HGB CONC 31.9 g/dl (32.0-36.5); MEAN CORPUSCULAR VOLUME 87.7 fl (80.0-96.0); PLATELET COUNT, AUTOMATED 289 10^3/uL (150-450); WHITE BLOOD COUNT 12.7 10^3/uL (4.0-10.0)
[2021-11-11 17:07] LABS: ALT/SGPT 11 U/L (12-78); BILIRUBIN,TOTAL 0.3 MG/DL (0.2-1.0); GLOMERULAR FILTRATION RATE > 60.0 (>60); LDH LACTATE DEHYDROGENASE 211 U/L (84-246); URIC ACID 4.3 MG/DL (2.6-6.0)
[2021-11-11] MEDS ORDERED: CALCIUM CARBONATE 500 MG CHEW U/D PO PRN (22:30)
[2021-11-11] MEDS ORDERED: TRANEXAMIC ACID INJection 1,000 MG in NS 100 ML IV PRN (23:30)
[2021-11-11] MEDS ORDERED: LIDOCAINE 1% MDV 20ML VIAL INFIL PRN (23:30)
[2021-11-11] MEDS ORDERED: OXYTOCIN DRIP 30 UNITS in IV 1 EA IV PRN ×4 (23:30)
[2021-11-11] MEDS ORDERED: OXYTOCIN INJ 10 UNITS/ML VIAL (J2590) IM PRN (23:30)
[2021-11-11] MEDS ORDERED: CARBOPROST TROMETHAMINE 250 MCG/ML AMP IM PRN (23:30)
[2021-11-11] MEDS: miSOPROStol 50MCG 1/2 TABLET PO SCH (23:55)
[2021-11-12] VITALS (22 sets, daily range): BP systolic 109–174; BP diastolic 58–90
[2021-11-12] MEDS: miSOPROStol 50MCG 1/2 TABLET PO SCH (04:00)
[2021-11-12] MEDS ORDERED: LR 500 ML IV PRN (09:05)
[2021-11-12] MEDS ORDERED: FENTANYL/ROPIVACAINE/NACL BAG 100 ML EPIDURAL SCH (09:05)
[2021-11-12] MEDS ORDERED: NALOXONE INJ 0.4MG/1ML VIAL (J2310 PER 1MG) IV PRN (09:05)
[2021-11-12] MEDS ORDERED: EPIDURAL/PCA KEYS XX PRN (09:05)
[2021-11-12] MEDS ORDERED: ONDANSETRON 4MG 2ML VIAL IV PRN (09:05)
[2021-11-12] MEDS ORDERED: diphenhydrAMINE 50MG/ML VIAL (J1200) IV PRN (09:05)
[2021-11-12] MEDS ORDERED: ePHEDrine SULFATE 25 MG/5 ML(5MG/ML) SYRINGE IVP PRN (09:05)
[2021-11-12] MEDS ORDERED: OXYTOCIN DRIP 30 UNITS in IV 1 EA IV SCH ×2 (10:30→13:05)
[2021-11-12] MEDS ORDERED: ACETAMINOPHEN 500 MG TAB PO PRN (13:05)
[2021-11-12] MEDS ORDERED: RHOGAM 300 MCG (1500 IU) INJ (J2790) IM SCH (13:05)
[2021-11-12] MEDS ORDERED: DOCUSATE SODIUM 100MG CAPSULE PO PRN (13:05)
[2021-11-12] MEDS ORDERED: DIBUCAINE 1% OINTMENT 30GM TOP PRN (13:05)
[2021-11-12] MEDS ORDERED: METHYLERGONOVINE MALEATE 0.2 MG TAB PO PRN (13:05)
[2021-11-12] MEDS ORDERED: IBUPROFEN 600MG TAB PO PRN (13:05)
[2021-11-12] MEDS: PRENATAL VITAMINS CHEWABLE TABLET PO SCH (16:14)
[2021-11-13 06:00] VITALS: BP 104/63
[2021-11-13] MEDS: PRENATAL VITAMINS CHEWABLE TABLET PO SCH (07:28)
[2021-11-13] MEDS ORDERED: PRENATAL VITAMINS CHEWABLE TABLET PO SCH (09:00)
[2021-11-13 10:00] VITALS: BP 106/74
[2021-11-13] MEDS ORDERED: medroxyPROGESTERone ACET IM SUSP 150 MG/ML VIAL (J1050) IM ONE (11:35)
[2021-11-14] MEDS ORDERED: MEASLES,MUMPS,RUBELLA VACCINE INJ (MMR-II) (90707) SC.IMMUN ONE (09:00)
== END 2021-11-13 14:15 | disposition home or self-care (01) | DRG 560 ==
LOC: M LDO 13:29 → M LDI 20:29 → M OBS 11-12 15:45
PROVIDERS: ADMIT Advanced Practice Midwife; ATTEND Advanced Practice Midwife
PROC: 3E033VJ Introduction of Other Hormone into Peripheral Vein, Percutaneous Approach (ICD-10-PCS; 2021-11-11)
PROC: 3E0DXGC Introduction of Other Therapeutic Substance into Mouth and Pharynx, External Approach (ICD-10-PCS; 2021-11-11)
PROC: 10E0XZZ Delivery of Products of Conception, External Approach (ICD-10-PCS; principal; 2021-11-12)
DX: O13.4 Gestational [pregnancy-induced] hypertension without significant proteinuria, complicating childbirth (principal); O69.1XX0 Labor and delivery complicated by cord around neck, with compression, not applicable or unspecified; Z37.0 Single live birth; Z3A.38 38 weeks gestation of pregnancy

== ENCOUNTER → 2022-04-01 | Outpatient (REF) | payer OTHER ==
[~2022-04-01] MED LIST changes: +ACET-897 PO
== END ==
LOC: M PLALAB 12:05
PROVIDERS: ATTEND Nurse Practitioner Family
DX: Z53.20 Procedure and treatment not carried out because of patient's decision for unspecified reasons (principal)

== ENCOUNTER → 2022-06-21 | Outpatient (CLI) | payer OTHER ==
[2022-06-21 09:32] LABS: HEMATOCRIT 40.6 % (36.0-47.0); HEMOGLOBIN 13.3 g/dl (12.0-15.5); MEAN CORPUSCULAR HEMOGLOBIN 29.3 pg (27.0-33.0); MEAN CORPUSCULAR HGB CONC 32.8 g/dl (32.0-36.5); MEAN CORPUSCULAR VOLUME 89.4 fl (80.0-96.0); PLATELET COUNT, AUTOMATED 260 10^3/uL (150-450); RED BLOOD COUNT 4.54 10^6/uL (4.00-5.40); WHITE BLOOD COUNT 6.9 10^3/uL (4.0-10.0)
[2022-06-21 09:44] LABS: HEMOGLOBIN A1c 5.2 % (4.0-6.0)
[2022-06-21 09:55] LABS: ALBUMIN 4.1 G/DL (3.2-5.2); ALKALINE PHOSPHATASE 69 U/L (46-116); ALT/SGPT 12 U/L (7.0-40); AMYLASE 75 U/L (30-118); AST/SGOT 12 U/L (<34); BILIRUBIN,TOTAL 0.4 MG/DL (0.3-1.2); BLOOD UREA NITROGEN 6 MG/DL (9-23); CALCIUM LEVEL 8.9 MG/DL (8.5-10.1); CARBON DIOXIDE LEVEL 24 MMOL/L (20-31); CHLORIDE LEVEL 108 MMOL/L (98-107); CHOLESTEROL LEVEL 135 MG/DL (<200); CHOLESTEROL RISK RATIO 2.78 (<5); CREATININE FOR GFR 0.59 MG/DL (0.55-1.30); GLOMERULAR FILTRATION RATE > 60.0 (>60); GLUCOSE, FASTING 97 MG/DL (60-100); HDL CHOLESTEROL 48.5 MG/DL (>40); LDL CHOLESTEROL 78.1 MG/DL (<100); NON-HDL-C 86.5 MG/DL; SODIUM LEVEL 139 MMOL/L (136-145); TRIGLYCERIDES LEVEL 42 MG/DL (<150)
[2022-06-21 09:59] LABS: THYROID STIMULATING HORMONE 1.073 uIU/ML (0.55-4.78)
== END ==
LOC: M RAD 08:37
PROVIDERS: ATTEND Family Medicine
DX: R10.9 Unspecified abdominal pain (principal); R93.5 Abnormal findings on diagnostic imaging of other abdominal regions, including retroperitoneum

== ENCOUNTER 2022-08-23 09:10 | Day surgery (SDC) | payer OTHER ==
[~2022-08-23] VITALS: Ht 157.5 cm; Wt 60.8 kg
[~2022-08-23 09:10] MED LIST changes: +AMPICILLIN SOD/SULBACTAM SOD 3 GM in D5W MINI-BAG PLUS 100 ML IV ONE; +CelecoXIB 400 MG CAP PO ONE; +KETOROLAC 60MG 2ML VIAL As Ordered ONE; +LIDOCAINE 2% 100MG/5ML SDV (FOR ANES.) As Ordered ONE; +METOCLOPRAMIDE INJ 10MG/2ML VIAL As Ordered ONE; +MIDAZOLAM INJ 2MG/2ML VIAL As Ordered ONE; +ONDANSETRON 4MG 2ML VIAL As Ordered ONE; +PANT40TA29 PO; +ROCURONIUM BROMIDE 50MG/5ML VIAL As Ordered ONE; +fentaNYL 100 MCG/2 ML INJECTION As Ordered ONE; +propofoL 200 MG/20 ML VIAL As Ordered ONE
[2022-08-23] MEDS ORDERED: LR 1,000 ML IV SCH ×2 (09:50→13:45)
[2022-08-23] MEDS ORDERED: BUPIVACAINE HCL 0.25% 30ML VIAL As Ordered ONE ×2 (12:00→12:01)
[2022-08-23] MEDS ORDERED: INDOCYANINE GREEN 25MG VIAL (IC-GREEN) As Ordered ONE (12:00)
[2022-08-23] MEDS ORDERED: LIDOCAINE 1% SDV 30ML VIAL As Ordered ONE ×2 (12:00→12:01)
[2022-08-23] MEDS ORDERED: ESMOLOL INJ 100MG/10ML VIAL As Ordered ONE (12:49)
[2022-08-23] MEDS ORDERED: SUGAMMADEX SODIUM 500 MG/5 ML VIAL (BRIDION) As Ordered ONE (13:12)
[2022-08-23] MEDS ORDERED: oxyCODONE 5MG TAB PO PRN (13:45)
[2022-08-23] MEDS ORDERED: fentaNYL 100 MCG/2 ML INJECTION IV PRN (13:45)
[2022-08-23] MEDS ORDERED: ONDANSETRON 4MG 2ML VIAL IV PRN (13:45)
[2022-08-23] MEDS ORDERED: NORCO, ANEXSIA 5/325MG TABLET (HYDROcodone/ACETAMINOPHEN) PO PRN ×2 (14:15)
[2022-08-23] MEDS: HYDROMORPHONE HCL 0.5 MG/ 0.5 ML SYRINGE IV PRN ×2 (14:30→14:36)
[2022-08-23 15:08] VITALS: BP 113/74; TEMP 97.4; O2SAT 96
[2022-08-23] MEDS ORDERED: KETOROLAC 30 MG/ML 1ML VIAL IV SCH (16:00)
== END 2022-08-23 15:19 | disposition home or self-care (01) ==
LOC: M SDC 09:10
PROVIDERS: ATTEND Surgery
DX: K80.20 Calculus of gallbladder without cholecystitis without obstruction (principal); K80.66 Calculus of gallbladder and bile duct with acute and chronic cholecystitis without obstruction; F17.210 Nicotine dependence, cigarettes, uncomplicated; Z91.040 Latex allergy status
CPT/HCPCS: 47563; 81025; 88304; J0295; J1100; J1170; J1885; J2250; J2405; J2765; J3010; Q9968; S2900

== ENCOUNTER → 2022-10-06 | Outpatient (CLI) | payer OTHER ==
[~2022-10-06] MED LIST changes: -AMPICILLIN SOD/SULBACTAM SOD 3 GM in D5W MINI-BAG PLUS 100 ML IV ONE; -CelecoXIB 400 MG CAP PO ONE; -KETOROLAC 60MG 2ML VIAL As Ordered ONE; -LIDOCAINE 2% 100MG/5ML SDV (FOR ANES.) As Ordered ONE; -METOCLOPRAMIDE INJ 10MG/2ML VIAL As Ordered ONE; -MIDAZOLAM INJ 2MG/2ML VIAL As Ordered ONE; -ONDANSETRON 4MG 2ML VIAL As Ordered ONE; -ROCURONIUM BROMIDE 50MG/5ML VIAL As Ordered ONE; -fentaNYL 100 MCG/2 ML INJECTION As Ordered ONE; -propofoL 200 MG/20 ML VIAL As Ordered ONE
== END ==
LOC: M SOG 07:51
PROVIDERS: ATTEND Orthopaedic Surgery
DX: M25.561 Pain in right knee (principal)

== ENCOUNTER → 2023-02-23 | Outpatient (REF) | payer OTHER | LOC: M SFHCWAGY 10:11 | PROVIDERS: ATTEND Nurse Practitioner Family | DX: Z12.4 Encounter for screening for malignant neoplasm of cervix (principal) ==

== ENCOUNTER → 2023-02-28 | Outpatient (CLI) | payer OTHER | LOC: M WHC 11:57 | PROVIDERS: ATTEND Nurse Practitioner Family | DX: N64.4 Mastodynia (principal) ==

== ENCOUNTER → 2023-08-24 | Outpatient (CLI) | payer OTHER ==
[2023-08-24 09:19] LABS: HEMATOCRIT 40.9 % (36.0-47.0); HEMOGLOBIN 14.4 g/dl (12.0-15.5); MEAN CORPUSCULAR HEMOGLOBIN 31.9 pg (27.0-33.0); MEAN CORPUSCULAR HGB CONC 35.2 g/dl (32.0-36.5); MEAN CORPUSCULAR VOLUME 90.7 fl (80.0-96.0); PLATELET COUNT, AUTOMATED 312 10^3/uL (150-450); RED BLOOD COUNT 4.51 10^6/uL (4.00-5.40); WHITE BLOOD COUNT 7.4 10^3/uL (4.0-10.0)
[2023-08-24 09:33] LABS: ALBUMIN 4.3 G/DL (3.2-5.2); ALKALINE PHOSPHATASE 81 U/L (46-116); ALT/SGPT 32 U/L (7.0-40); AST/SGOT 29 U/L (<34); BILIRUBIN,TOTAL 0.5 MG/DL (0.3-1.2); BLOOD UREA NITROGEN 6 MG/DL (9-23); CALCIUM LEVEL 9.3 MG/DL (8.5-10.1); CARBON DIOXIDE LEVEL 24 MMOL/L (20-31); CHLORIDE LEVEL 105 MMOL/L (98-107); CHOLESTEROL LEVEL 181 MG/DL (<200); CHOLESTEROL RISK RATIO 4.15 (<5); CREATININE FOR GFR 0.56 MG/DL (0.55-1.30); GLOMERULAR FILTRATION RATE > 60.0 (>60); GLUCOSE, FASTING 94 MG/DL (60-100); HDL CHOLESTEROL 43.6 MG/DL (>40); IRON (FE) 76 UG/DL (50-170); LDL CHOLESTEROL 95.8 MG/DL (<100); MAGNESIUM LEVEL 1.6 MG/DL (1.8-2.4); NON-HDL-C 137.4 MG/DL; POTASSIUM SERUM 4.2 MMOL/L (3.5-5.1); SODIUM LEVEL 138 MMOL/L (136-145); TOTAL IRON BINDING CAPACITY 400 UG/DL (250-425); TOTAL PROTEIN 7.1 G/DL (5.7-8.2); TRIGLYCERIDES LEVEL 208 MG/DL (<150)
[2023-08-24 09:35] LABS: THYROID STIMULATING HORMONE 0.751 uIU/ML (0.55-4.78); TOTAL 25(OH) VITAMIN D 8.3 NG/ML (20.0-100.0)
== END ==
LOC: M LAB 07:43
PROVIDERS: ATTEND Family Medicine
DX: I10 Essential (primary) hypertension (principal)

== ENCOUNTER → 2023-11-18 | Outpatient (CLI) | payer OTHER | LOC: M RAD 11:42 | PROVIDERS: ATTEND Orthopaedic Surgery | DX: M54.6 Pain in thoracic spine (principal); M54.50 Low back pain, unspecified ==

== ENCOUNTER → 2024-01-09 | Outpatient (CLI) | payer OTHER | LOC: M RAD 12:09 | PROVIDERS: ATTEND Family Medicine | DX: N20.0 Calculus of kidney (principal) ==

== ENCOUNTER → 2024-03-15 | Outpatient (CLI) | payer OTHER | LOC: M RAD 08:11 | PROVIDERS: ATTEND Family Medicine | DX: R10.9 Unspecified abdominal pain (principal); K27.9 Peptic ulcer, site unspecified, unspecified as acute or chronic, without hemorrhage or perforation; K76.0 Fatty (change of) liver, not elsewhere classified; N28.1 Cyst of kidney, acquired ==

== ENCOUNTER → 2024-07-03 | Outpatient (REF) | payer OTHER ==
[2024-07-06 15:12] LABS: HPV APTIMA Not Detected (Not Detected)
== END ==
LOC: M SFHCDERM 08:24
PROVIDERS: ATTEND Nurse Practitioner Family
DX: Z12.4 Encounter for screening for malignant neoplasm of cervix (principal); Z77.9 Other contact with and (suspected) exposures hazardous to health

== ENCOUNTER 2024-10-16 07:44 | Day surgery (SDC) | payer OTHER ==
[~2024-10-16] VITALS: Ht 157.5 cm; Wt 72.6 kg
[~2024-10-16 07:44] MED LIST changes: +LR 1,000 ML IV SCH; +METO25TA4 PO; +TRIA37.577 PO
[2024-10-16] MEDS ORDERED: LIDOCAINE 2% 100 MG/5 ML SDV (FOR ANES.) As Ordered ONE (08:02)
[2024-10-16] MEDS ORDERED: MIDAZOLAM INJ 2 MG/2 ML VIAL As Ordered ONE (08:02)
[2024-10-16] MEDS ORDERED: ONDANSETRON 4MG 2ML VIAL As Ordered ONE (08:02)
[2024-10-16] MEDS ORDERED: ROCURONIUM BROMIDE 50MG/5ML VIAL As Ordered ONE (08:02)
[2024-10-16] MEDS ORDERED: dexAMETHasone 4 MG/ML 1 ML VIAL As Ordered ONE (08:02)
[2024-10-16] MEDS ORDERED: KETOROLAC 30 MG/ML 1 ML VIAL As Ordered ONE (08:05)
[2024-10-16 08:21] LABS: PLATELET COUNT, AUTOMATED 366 10^3/uL (150-450)
[2024-10-16 08:40] LABS: CALCIUM LEVEL 10.3 MG/DL (8.5-10.1); CARBON DIOXIDE LEVEL 23 MMOL/L (20-31); CHLORIDE LEVEL 105 MMOL/L (98-107); CREATININE FOR GFR 0.83 MG/DL (0.55-1.30); GLOMERULAR FILTRATION RATE > 90.0 (>60); POTASSIUM SERUM 3.7 MMOL/L (3.5-5.1); SODIUM LEVEL 142 MMOL/L (136-145)
[2024-10-16] MEDS: SCOPOLAMINE 1MG TRANSDERMAL PATCH TOP ONE (08:43)
[2024-10-16] MEDS ORDERED: ACETAMINOPHEN 1000MG/100ML IV BAG As Ordered ONE (09:06)
[2024-10-16] MEDS ORDERED: ESMOLOL 100 MG/10 ML VIAL As Ordered ONE (09:22)
[2024-10-16] MEDS ORDERED: LABETALOL 100 MG/20 ML VIAL As Ordered ONE (09:22)
[2024-10-16] MEDS ORDERED: SUGAMMADEX SODIUM 200 MG/2 ML VIAL As Ordered ONE (09:23)
[2024-10-16] MEDS ORDERED: ePHEDrine INJ 50 MG/ML 1 ML VIAL As Ordered ONE (09:23)
[2024-10-16] MEDS: MEPERIDINE 25 MG/ML 1 ML VIAL IV PRN (10:20)
[2024-10-16] MEDS: ONDANSETRON 4MG 2ML VIAL IV PRN (10:22)
[2024-10-16] MEDS: MORPHINE 2 MG/ML 1 ML VIAL IV PRN (10:22)
[2024-10-16 11:30] VITALS: BP 109/66; TEMP 98.4; O2SAT 96
== END 2024-10-16 11:57 | disposition home or self-care (01) ==
LOC: M SDC 07:44
PROVIDERS: ATTEND Obstetrics & Gynecology
DX: Z30.2 Encounter for sterilization (principal); N83.292 Other ovarian cyst, left side; I10 Essential (primary) hypertension; Z79.899 Other long term (current) drug therapy; F17.290 Nicotine dependence, other tobacco product, uncomplicated; Z91.040 Latex allergy status; Z90.49 Acquired absence of other specified parts of digestive tract; Z90.89 Acquired absence of other organs
CPT/HCPCS: 36415; 58661; 80048; 81025; 85027; 86850; 86900; 86901; 88302; J0131; J0665; J1100; J1805; J1885; J1920; J2175; J2250; J2405; J3010

== ENCOUNTER → 2024-11-30 | Outpatient (REF) | payer OTHER ==
[~2024-11-30] MED LIST changes: -LR 1,000 ML IV SCH
[2024-11-30 14:08] LABS: PLATELET COUNT, AUTOMATED 390 10^3/uL (150-450)
[2024-11-30 14:16] LABS: ALT/SGPT 109 U/L (7.0-40); AST/SGOT 82 U/L (<34); CALCIUM LEVEL 10.0 MG/DL (8.5-10.1); CARBON DIOXIDE LEVEL 28 MMOL/L (20-31); CHLORIDE LEVEL 99 MMOL/L (98-107); CHOLESTEROL LEVEL 239 MG/DL (<200); CHOLESTEROL RISK RATIO 5.25 (<5); CREATININE FOR GFR 0.67 MG/DL (0.55-1.30); GLOMERULAR FILTRATION RATE > 90.0 (>60); LDL CHOLESTEROL 148.5 MG/DL (<100); NON-HDL-C 193.5 MG/DL; POTASSIUM SERUM 3.5 MMOL/L (3.5-5.1); SODIUM LEVEL 140 MMOL/L (136-145); TRIGLYCERIDES LEVEL 225 MG/DL (<150)
[2024-11-30 17:39] LABS: FREE T4 1.50 NG/DL (0.89-1.76)
== END ==
LOC: M SFHCPLAZ 09:57
PROVIDERS: ATTEND Family Medicine
DX: Z00.00 Encounter for general adult medical examination without abnormal findings (principal); R79.89 Other specified abnormal findings of blood chemistry

== ENCOUNTER → 2024-12-03 | Outpatient (CLI) | payer OTHER ==
[2024-12-03 12:56] LABS: PLATELET COUNT, AUTOMATED 341 10^3/uL (150-450)
[2024-12-03 13:11] LABS: ESTIMATED AVERAGE GLUCOSE 100.0 MG/DL (60-110)
[2024-12-03 13:31] LABS: ALT/SGPT 139 U/L (7.0-40); AST/SGOT 126 U/L (<34); CALCIUM LEVEL 11.1 MG/DL (8.5-10.1); CARBON DIOXIDE LEVEL 28 MMOL/L (20-31); CHLORIDE LEVEL 102 MMOL/L (98-107); CHOLESTEROL LEVEL 243 MG/DL (<200); CHOLESTEROL RISK RATIO 5.36 (<5); CREATININE FOR GFR 0.66 MG/DL (0.55-1.30); GLOMERULAR FILTRATION RATE > 90.0 (>60); LDL CHOLESTEROL 168.3 MG/DL (<100); NON-HDL-C 197.7 MG/DL; POTASSIUM SERUM 3.6 MMOL/L (3.5-5.1); SODIUM LEVEL 141 MMOL/L (136-145); TOTAL 25(OH) VITAMIN D 9.9 NG/ML (20.0-100.0); TRIGLYCERIDES LEVEL 147 MG/DL (<150)
== END ==
LOC: M RAD 10:54
PROVIDERS: ATTEND Family Medicine
DX: I10 Essential (primary) hypertension (principal); R53.83 Other fatigue; E03.9 Hypothyroidism, unspecified

== ENCOUNTER 2024-12-18 11:03 | Emergency (ER) | payer OTHER ==
[~2024-12-18] VITALS: Ht 157.5 cm; Wt 72.5 kg
[2024-12-18 11:34] LABS: BASO # 0.0 10^3/uL (0.0-0.2); BASO % 0.6 % (0.0-1.0); EOS # 0.2 10^3/uL (0.0-0.5); EOS % 2.9 % (0.0-3.0); LYMPH # 1.4 10^3/uL (1.5-5.0); LYMPH % 22.6 % (24.0-44.0); MONO # 0.4 10^3/uL (0.0-0.8); MONO % 7.1 % (2.0-8.0); NEUTROPHILS # 4.2 10^3/uL (1.5-8.5); NEUTROPHILS % 66.5 % (36.0-66.0); PLATELET COUNT, AUTOMATED 321 10^3/uL (150-450)
[2024-12-18 12:20] LABS: HCG, SERUM QUALITATIVE NEGATIVE (NEGATIVE)
[2024-12-18 12:33] LABS: CK-MB VALUE MASS < 1.0 NG/ML (<3.6)
[2024-12-18 12:34] LABS: CPK CREATINE PHOSPHOKINASE 63 U/L (34-145)
[2024-12-18 12:36] LABS: CALCIUM LEVEL 9.5 MG/DL (8.5-10.1); CARBON DIOXIDE LEVEL 23 MMOL/L (20-31); CHLORIDE LEVEL 106 MMOL/L (98-107); CREATININE FOR GFR 0.60 MG/DL (0.55-1.30); GLOMERULAR FILTRATION RATE > 90.0 (>60); POTASSIUM SERUM 3.7 MMOL/L (3.5-5.1); SODIUM LEVEL 142 MMOL/L (136-145)
[2024-12-18 15:00] VITALS: TEMP 99.5
[2024-12-18 16:15] VITALS: BP 133/88; O2SAT 99
== END 2024-12-18 16:55 | disposition home or self-care (01) ==
LOC: M ED 11:03
DX: R07.89 Other chest pain (principal); R03.0 Elevated blood-pressure reading, without diagnosis of hypertension; I10 Essential (primary) hypertension

== ENCOUNTER → 2024-12-19 | Outpatient (REF) | payer OTHER | LOC: M SFHCPLAZ 13:46 | PROVIDERS: ATTEND Family Medicine | DX: Z53.9 Procedure and treatment not carried out, unspecified reason (principal) ==

== ENCOUNTER → 2025-01-22 | Outpatient (CLI) | payer OTHER | LOC: M RAD 06:33 | PROVIDERS: ATTEND Family Medicine | DX: I10 Essential (primary) hypertension (principal) ==

== ENCOUNTER → 2025-01-25 | Outpatient (REF) ==
[2025-01-25 12:54] LABS: SOFIA COVID ANTIGEN NEGATIVE (NEGATIVE)
== END ==
LOC: M EMP 11:30
PROVIDERS: ATTEND Family Medicine
DX: Z02.89 Encounter for other administrative examinations (principal)

== ENCOUNTER → 2025-03-12 | Outpatient (REF) ==
[2025-03-12 09:39] LABS: SOFIA COVID ANTIGEN NEGATIVE (NEGATIVE)
== END ==
LOC: M EMP 08:49
PROVIDERS: ATTEND Family Medicine
DX: Z20.828 Contact with and (suspected) exposure to other viral communicable diseases (principal)

== ENCOUNTER 2025-04-03 14:50 | Emergency (ER) | payer OTHER ==
[~2025-04-03] VITALS: Ht 157.5 cm; Wt 65.2 kg
[2025-04-03 15:32] LABS: BASO # 0.1 10^3/uL (0.0-0.2); BASO % 0.5 % (0.0-1.0); EOS # 0.1 10^3/uL (0.0-0.5); EOS % 0.5 % (0.0-3.0); LYMPH # 1.1 10^3/uL (1.5-5.0); LYMPH % 8.6 % (24.0-44.0); MONO # 0.5 10^3/uL (0.0-0.8); MONO % 4.1 % (2.0-8.0); NEUTROPHILS # 11.0 10^3/uL (1.5-8.5); NEUTROPHILS % 86.1 % (36.0-66.0); PLATELET COUNT, AUTOMATED 330 10^3/uL (150-450)
[2025-04-03 15:35] LABS: KETONE, URINE AUTO RFX 2+ mg/dL (NEGATIVE); MUCUS, URINE RFX LARGE (NEGATIVE); NITRITE, URINE AUTO RFX NEGATIVE (NEGATIVE); RBC, URINE AUTO RFX 3 /HPF (0-3); SQUAM EPITHELIAL CELL UR AURFX 7 /HPF (0-6)
[2025-04-03 15:43] LABS: LEUKOCYTE ESTERASE UR AUTO RFX 1+ (NEGATIVE); WBC, URINE AUTO RFX 17 /HPF (0-3)
[2025-04-03 16:06] LABS: ALT/SGPT 103 U/L (7.0-40); AST/SGOT 136 U/L (<34)
[2025-04-03 16:08] LABS: HCG, SERUM QUALITATIVE NEGATIVE (NEGATIVE)
[2025-04-03] MEDS ORDERED: ISOVUE-370 76% 100 ML VIAL As Ordered ONE (16:40)
[2025-04-03] MEDS: NS (Normal Saline) 0.9% 1,000 ML IV ONE (16:43)
[2025-04-03] MEDS: ONDANSETRON 4MG/2ML VIAL IV ONE (16:43)
[2025-04-03] MEDS: diphenhydrAMINE 50 MG/ML VIAL IV STA (16:56)
[2025-04-03] MEDS: EPINEPHrine INJ 1 MG/ML 1ML AMP SC STA (16:56)
[2025-04-03] MEDS ORDERED: diphenhydrAMINE 50 MG/ML VIAL As Ordered ONE (16:56)
[2025-04-03] MEDS ORDERED: EPINEPHrine INJ 1 MG/ML 1ML AMP As Ordered ONE (16:57)
[2025-04-03] MEDS: ALBUTEROL SULFATE 2.5 MG/0.5 ML INH CONCENTRATE NEB SOLN NEB ONE (17:06)
[2025-04-03 17:10] LABS: CALCIUM LEVEL 9.6 MG/DL (8.5-10.1); CARBON DIOXIDE LEVEL 20 MMOL/L (20-31); CHLORIDE LEVEL 101 MMOL/L (98-107); CK-MB VALUE MASS < 1.0 NG/ML (<3.6); CREATININE FOR GFR 0.48 MG/DL (0.55-1.30); GLOMERULAR FILTRATION RATE > 90.0 (>60); MAGNESIUM LEVEL 1.6 MG/DL (1.8-2.4); POTASSIUM SERUM 3.9 MMOL/L (3.5-5.1); SODIUM LEVEL 139 MMOL/L (136-145)
[2025-04-03] MEDS: EPINEPHrine INJ 1 MG/ML 1ML AMP IM STA (17:10)
[2025-04-03] MEDS: FAMOTIDINE IV BAG 20 MG in IV 1 EA IV ONE (17:10)
[2025-04-03 17:13] LABS: FREE T4 1.53 NG/DL (0.89-1.76)
[2025-04-03 17:14] LABS: CPK CREATINE PHOSPHOKINASE 50 U/L (34-145)
[2025-04-03 20:00] VITALS: BP 128/78; TEMP 99.8; O2SAT 98
[2025-04-03] MEDS ORDERED: PRED20TA PO (20:01)
[2025-04-03] MEDS ORDERED: CETI10CH PO (20:01)
[2025-04-03] MEDS ORDERED: HOLTER MONITOR XX ×2 (20:03→20:06)
[2025-04-03] MEDS ORDERED: VENTAER INH (20:03)
[2025-04-03] MEDS ORDERED: ONDA-282 PO (20:05)
[2025-04-03] MEDS: CETIRIZINE 10 MG TAB PO ONE (20:10)
[2025-04-03] MEDS: predniSONE 20 MG TAB PO ONE (20:10)
== END 2025-04-03 20:20 | disposition home or self-care (01) ==
LOC: M ED 14:50
DX: R00.0 Tachycardia, unspecified (principal); T50.8X5A Adverse effect of diagnostic agents, initial encounter; R11.2 Nausea with vomiting, unspecified; R19.7 Diarrhea, unspecified; K76.0 Fatty (change of) liver, not elsewhere classified; I10 Essential (primary) hypertension; Z79.899 Other long term (current) drug therapy; Z91.041 Radiographic dye allergy status; Z91.040 Latex allergy status
CPT/HCPCS: 71275; 76705; 80047; 80048; 80076; 81001; 82550; 82553; 83690; 83735; 84439; 84443; 84484; 84703; 85025; 87086; 87486; 87581; 87633; 87798; 93005; 93041; 94640; 94760; 96365; 96372; 96375; 99285; J0166; J1200; J1308; J2405; J2919; J7512; Q9967

== ENCOUNTER 2025-04-09 04:31 | Emergency (ER) | payer OTHER ==
[~2025-04-09] VITALS: Ht 157.5 cm; Wt 67.4 kg
[2025-04-09 04:34] VITALS: TEMP 97.5
[2025-04-09 05:33] VITALS: BP 170/105
[2025-04-09 05:50] LABS: BASO # 0.1 10^3/uL (0.0-0.2); BASO % 0.5 % (0.0-1.0); EOS # 0.1 10^3/uL (0.0-0.5); EOS % 0.5 % (0.0-3.0); LYMPH # 1.4 10^3/uL (1.5-5.0); LYMPH % 12.4 % (24.0-44.0); MONO # 0.3 10^3/uL (0.0-0.8); MONO % 2.4 % (2.0-8.0); NEUTROPHILS # 9.1 10^3/uL (1.5-8.5); NEUTROPHILS % 81.7 % (36.0-66.0); PLATELET COUNT, AUTOMATED 362 10^3/uL (150-450)
[2025-04-09] MEDS: hydrALAZINE 20 MG/ML 1 ML VIAL IV STA (05:57)
[2025-04-09 06:16] LABS: CALCIUM LEVEL 10.1 MG/DL (8.5-10.1); CARBON DIOXIDE LEVEL 28 MMOL/L (20-31); CHLORIDE LEVEL 98 MMOL/L (98-107); CK-MB VALUE MASS < 1.0 NG/ML (<3.6); CREATININE FOR GFR 0.57 MG/DL (0.55-1.30); GLOMERULAR FILTRATION RATE > 90.0 (>60); POTASSIUM SERUM 3.9 MMOL/L (3.5-5.1); SODIUM LEVEL 137 MMOL/L (136-145)
[2025-04-09 06:37] LABS: CPK CREATINE PHOSPHOKINASE 19 U/L (34-145)
[2025-04-09] MEDS: MAG SULF 1GM/100ML (MAG RUN) 1 GM in IV 1 EA IV ONE (07:09)
[2025-04-09 07:10] VITALS: BP 135/62
[2025-04-09] MEDS: LOSARTAN 25 MG TAB PO ONE (07:10)
[2025-04-09 09:16] VITALS: O2SAT 98
[2025-04-09 10:12] LABS: KETONE, URINE AUTO RFX NEGATIVE (NEGATIVE); LEUKOCYTE ESTERASE UR AUTO RFX NEGATIVE (NEGATIVE); MUCUS, URINE RFX SMALL (NEGATIVE); NITRITE, URINE AUTO RFX NEGATIVE (NEGATIVE); RBC, URINE AUTO RFX 1 /HPF (0-3); SQUAM EPITHELIAL CELL UR AURFX 8 /HPF (0-6); WBC, URINE AUTO RFX 1 /HPF (0-3)
[2025-04-09 10:27] LABS: HCG, SERUM QUALITATIVE NEGATIVE (NEGATIVE)
[2025-04-09 11:33] LABS: AMPHETAMINES LEVEL URINE NEGATIVE (NEGATIVE); BARBITURATES URINE NEGATIVE (NEGATIVE); CANNABINOIDS URINE NEGATIVE (NEGATIVE); COCAINE METABOLITE URINE NEGATIVE (NEGATIVE); METHADONE URINE NEGATIVE (NEGATIVE); OPIATES URINE NEGATIVE (NEGATIVE); PHENCYCLIDINE URINE NEGATIVE (NEGATIVE)
[2025-04-09 11:42] LABS: BENZODIAZEPINES URINE NEGATIVE (NEGATIVE)
== END 2025-04-09 14:04 | disposition home or self-care (01) ==
LOC: M ED 04:31
DX: I10 Essential (primary) hypertension (principal); Z79.899 Other long term (current) drug therapy; Z91.041 Radiographic dye allergy status; Z91.040 Latex allergy status
CPT/HCPCS: 36415; 80048; 80307; 81001; 82550; 82553; 83735; 84439; 84443; 84484; 84703; 85025; 93005; 93242; 94760; 96374; 96375; 99214; 99284; J0360; J3475

== ENCOUNTER → 2025-04-09 | Outpatient (REF) | payer OTHER ==
[~2025-04-09] MED LIST changes: +CETI10CH PO; +HOLTER MONITOR XX; +ONDA-282 PO; +PRED20TA PO; +VENTAER INH
== END ==
LOC: M SFHCPLAZ 14:01
PROVIDERS: ATTEND Family Medicine
DX: Z53.9 Procedure and treatment not carried out, unspecified reason (principal); R00.2 Palpitations

== ENCOUNTER → 2025-04-09 | Outpatient (CLI) | payer OTHER ==
[2025-04-09 18:07] LABS: FREE T4 1.78 NG/DL (0.89-1.76)
== END ==
LOC: M PLALAB 14:30
PROVIDERS: ATTEND Family Medicine
DX: R79.89 Other specified abnormal findings of blood chemistry (principal)

== ENCOUNTER → 2025-04-10 | Outpatient (CLI) | payer OTHER | LOC: M LAB 11:31 | PROVIDERS: ATTEND Family Medicine | DX: R00.2 Palpitations (principal); R79.89 Other specified abnormal findings of blood chemistry ==